=== PATIENT | female | born 1955 | race Two or more races ===

== ENCOUNTER 2023-03-31 17:17 | Emergency (ER) | payer OTHER ==
[~2023-03-31] VITALS: Ht 157.5 cm; Wt 84.4 kg
[2023-03-31] MEDS ORDERED: AVAPRO300 MG PO (17:37)
[2023-03-31] MEDS ORDERED: ANASTROZOLE1 MG PO (17:37)
[2023-03-31] MEDS ORDERED: AZOR 5-20 MG T1 EACH (17:39)
[2023-03-31] MEDS ORDERED: PEPCID AC20 MG PO (21:16)
[2023-03-31] MEDS ORDERED: LEVSIN/SL0.125 MG SL (21:16)
[2023-03-31] MEDS ORDERED: INTESTINEX680 M1 PO (21:16)
== END 2023-03-31 21:18 | disposition home or self-care (01) ==
LOC: ER 17:17
PROVIDERS: General Practice
DX: R10.9 Unspecified abdominal pain (principal); R19.7 Diarrhea, unspecified; I10 Essential (primary) hypertension; Z20.822 Contact with and (suspected) exposure to COVID-19; Z91.018 Allergy to other foods
CPT/HCPCS: 36415; 74176; 96365; 96366; 99284; J3490; J7030